=== PATIENT | male | born 1985 | race Caucasian/White ===

== ENCOUNTER 2018-08-19 14:47 | Emergency (ER) | payer BC, OTHER ==
[2018-08-19] MEDS ORDERED: Adacel (T-DAP) 0.5 ML VIAL ONE (14:57)
[2018-08-19] MEDS ORDERED: Silver Sulfadiazine 1% Cream 50 GM JAR ONE (14:58)
[2018-08-19] MEDS ORDERED: Bacitracin Zinc 1 Packet ONE (14:58)
== END 2018-08-19 15:07 | disposition home or self-care (01) ==
LOC: ERS 14:47
DX: T22.512A Corrosion of first degree of left forearm, initial encounter (principal)
CPT/HCPCS: 16000; 90471; 90715